=== PATIENT | male | born 1980 | race Caucasian/White ===

== ENCOUNTER 2017-12-31 04:25 | Emergency (ER) | payer BC ==
[2017-12-31] MEDS ORDERED: Dexamethasone 10 MG/ML SDV IM ONE (04:50)
--- NOTE | 2017-12-31 04:54 | EDM.PDOC ---
ED HPI GENERAL MEDICAL PROBLEM - General Chief Complaint: ENT Problem Stated Complaint: SORE THROAT Time Seen by Provider: 12/31/17 04:44 - History of Present Illness INITIAL COMMENTS - FREE TEXT/NARRATIVE: HISTORY AND PHYSICAL: History of present illness: The patient is a 37 y/o male with no stated medical problems who presents with a 24-hour history of sore throat and feeling hot but he did not take his temperature at home. The patient said he took Tylenol a few hours ago and took Motrin earlier yesterday afternoon for throat pain but did not specifically take his temperature. He has not had a cough chest pain or shortness of breath and no nausea or vomiting. Is taking fluids but not as much as he knows that he should be a denies any headache or sinus comfort. He says is painful to talk and swallow but he has been trying to hydrate. Review of systems: As per history of present illness and below otherwise all systems reviewed and negative. Past medical history: As per history of present illness and as reviewed below otherwise noncontributory. Surgical history: As per history of present illness and as reviewed below otherwise noncontributory. Social history: No reported history of drug or alcohol abuse. Family history: As per history of present illness and as reviewed below otherwise noncontributory. Physical exam: Dermal: Well-developed mildly overweight man who is nontoxic and has slight hoarseness to voice but he does not have a muffled voice and is not drooling. Is not breathless on my evaluation. HEENT: Atraumatic, normocephalic, pupils reactive, negative for conjunctival pallor or scleral icterus, mucous membranes moist, throat with bilaterally enlarged tonsils that are not quite kissing with exudates, uvula is midline, there is anterior adenopathy which is tender but no posterior adenopathy and there is no nuchal rigidity, neck supple, nontender, trachea midline. Lungs: Clear to auscultation, breath sounds equal bilaterally, chest nontender. No stridor or wheezing or work of breathing Heart: S1S2, regular rhythm slightly tachycardic on my evaluation Abdomen: Soft, nondistended, nontender. NABS Pelvis: Deferred Genitourinary: Deferred. Rectal: Deferred. Extremities: Atraumatic, negative for cords or calf pain. Neurovascular unremarkable. Neuro: Awake, alert, oriented. Cranial nerves II through XII unremarkable. Cerebellum unremarkable. Motor and sensory unremarkable throughout. Exam nonfocal. Diagnostics: [] Therapeutics: Decadron Patient was offered Motrin or Tylenol for his fever and would like to defer and take it at home Impression: Exudative tonsillitis Definitive disposition and diagnosis as appropriate pending reevaluation and review of above. throat Pain Score (Numeric/FACES): 8 - Related Data Allergies Allergy/AdvReac Type Severity Reaction Status Date / Time No Known Allergies Allergy Verified 12/31/17 04:42 Home Meds: Home Meds . [No Known Home Meds] 12/31/17 [History] Past Medical History - Past Surgical History GI Surgical History: Reports: Appendectomy Social & Family History - Family History Family Medical History: Noncontributory - Tobacco Use Smoking Status *Q: Never Smoker - Recreational Drug Use Recreational Drug Use: No ED ROS GENERAL - Review of Systems Review Of Systems: ROS reveals no pertinent complaints other than HPI. ED EXAM, GENERAL - Physical Exam Exam: See Below (See dictation) Course - Vital Signs Last Recorded V/S: Last Vital Signs Temp 38.3 C H 12/31/17 04:25 Pulse 110 H 12/31/17 04:25 Resp 18 12/31/17 04:25 BP 139/74 12/31/17 04:25 Pulse Ox 95 12/31/17 04:25 - Orders/Labs/Meds Orders: Active Orders 24 hr Category Date Time Status Dexamethasone Med 12/31/17 04:50 Once 10 mg IM ONETIME ONE Departure - Departure Time of Disposition: 04:53 Disposition: Home, Self-Care 01 Condition: Good Clinical Impression: Exudative tonsillitis - Discharge Information Referrals: Asia Pabon NP [Primary Care Provider] - Additional Instructions: The following information is given to patients seen in the emergency department who are being discharged to home. This information is to outline your options for follow-up care. We provide all patients seen in our emergency department with a follow-up referral. The need for follow-up, as well as the timing and circumstances, are variable depending upon the specifics of your emergency department visit. If you don't have a primary care physician on staff, we will provide you with a referral. We always advise you to contact your personal physician following an emergency department visit to inform them of the circumstance of the visit and for follow-up with them and/or the need for any referrals to a consulting specialist. The emergency department will also refer you to a specialist when appropriate. This referral assures that you have the opportunity for followup care with a specialist. All of these measure are taken in an effort to provide you with optimal care, which includes your followup. Under all circumstances we always encourage you to contact your private physician who remains a resource for coordinating your care. When calling for followup care, please make the office aware that this follow-up is from your recent emergency room visit. If for any reason you are refused follow-up, please contact the [facility] emergency department at and ask to speak to the emergency department charge nurse. [facility] Primary care- Internal Medicine and Family [address] [id number] Please try to push hydration more than you have been doing, rest, use over-the- counter Tylenol and ibuprofen for fevers as we discussed. Please take antibiotics, Augmentin, until they are finished. Please use Tylenol with codeine elixir as needed for pain as prescribed to you from [facility]. Please contact the clinic and schedule a follow-up in the next few days and return to ER as needed and as discussed - My Orders Last 24 Hours: My Active Orders 12/31/17 04:50 Dexamethasone 10 mg IM ONETIME ONE - Assessment/Plan Last 24 Hours: My Active Orders 12/31/17 04:50 Dexamethasone 10 mg IM ONETIME ONE
== END 2017-12-31 05:19 | disposition home or self-care (01) ==
LOC: MW.ED 04:25
DX: J03.90 Acute tonsillitis, unspecified (principal)
CPT/HCPCS: 96372; 99282; J1100

== ENCOUNTER 2022-09-25 23:50 | Emergency (ER) | payer BC ==
[2022-09-26] MEDS ORDERED: Sodium Chloride 0.9% 2.5 ML Syringe FLUSH PRN (00:07)
[2022-09-26] MEDS ORDERED: Sodium Chloride 0.9% 10 ML Syringe FLUSH PRN (00:07)
[2022-09-26] MEDS ORDERED: Aspirin 81 MG Tab.Chew PO ONE (00:08)
[2022-09-26 00:49] LABS: CARBON DIOXIDE,CO2 26.7 mmol/L (21.0-32.0); POTASSIUM,K 3.6 mmol/L (3.5-5.1)
== END 2022-09-26 02:50 | disposition home or self-care (01) ==
LOC: MW.ED 23:50
DX: R07.89 Other chest pain (principal)
CPT/HCPCS: 36415; 71045; 80053; 84484; 85025; 93005; 99285; A9270; J3490; 93010; 99283